=== PATIENT | male | born 1945 | race Caucasian/White ===

== ENCOUNTER 2025-04-29 11:24 | Emergency (ER) | payer MEDICARE ==
[2025-04-29 11:59] VITALS: TEMP 98.4
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
[2025-04-29] MEDS ORDERED: Hydromorphone 1 mg/ml Injection ONE (15:43)
[2025-04-29] MEDS ORDERED: Zofran 4 MG/2 ML VIAL ONE (15:43)
[2025-04-29] MEDS: Hydromorphone 1 mg/ml Injection IV ONE (15:46)
[2025-04-29] MEDS: Zofran 4 MG/2 ML VIAL IV ONE (15:47)
[2025-04-29 19:22] VITALS: PULSE 66; RESP 13; O2SAT 97
[2025-04-29 19:59] VITALS: BP 175/77
== END 2025-04-29 19:50 | disposition home or self-care (01) ==
LOC: ED 11:24
DX: S12.030A Displaced posterior arch fracture of first cervical vertebra, initial encounter for closed fracture (principal); S01.21XA Laceration without foreign body of nose, initial encounter; S01.81XA Laceration without foreign body of other part of head, initial encounter; W19.XXXA Unspecified fall, initial encounter; Z79.891 Long term (current) use of opiate analgesic; Z79.899 Other long term (current) drug therapy